=== PATIENT | female | born 1965 | race Caucasian/White ===

== ENCOUNTER → 2018-04-08 | Outpatient (REF) ==
[~2018-04-08] MED LIST: CELEXA; CLONAZEPAM PO; MAXZIDE; NORCO 325 MG-51 TAB PO; TRAZODO50 MG PO
== END ==
LOC: ZLAB.WCH 12:03
DX: Z01.89 Encounter for other specified special examinations (principal)

== ENCOUNTER 2018-06-22 18:13 | Emergency (ER) | payer BC ==
[~2018-06-22] VITALS: Ht 175.3 cm; Wt 102.3 kg
[~2018-06-22 18:13] MED LIST changes: -CLONAZEPAM PO; +KLONOPIN2 MG PO
[2018-06-22 18:20] VITALS: TEMP 97.3
[2018-06-22 18:29] LABS: BASO % 0.2 % (0.0-2.0); EOS # 0.1 (0.0-0.7); EOS % 1.1 % (0-4.0); GRAN # 4.2 (1.4-6.5); GRAN % 45.3 % (42.2-75.2); HEMATOCRIT 39.1 % (37.0-47.0); HEMOGLOBIN 13.4 g/dl (12.5-16.0); LYMPH # 4.3 (1.2-3.4); LYMPH % 46.2 % (20.0-51.0); MEAN CELL VOLUME 89 fl (80.0-100.0); MEAN CORPUSCULAR HEMOGLOBIN 30 pg (27.0-31.0); MEAN CORPUSCULAR HGB CONC 34 g/dl (33.0-37.0); MEAN PLATELET VOLUME 10.6 fl (7.4-10.4); MONO # 0.6 (0.1-0.6); MONO % 6.9 % (1.7-9.3); PLATELET COUNT 226 K/mm3 (130-400); RED BLOOD COUNT 4.41 M/mm3 (4.10-5.30); REDCELL DISTRIBUTION WIDTH-CV 12.4 % (11.5-14.5)
[2018-06-22 18:39] LABS: ALBUMIN 4.2 gm/dL (3.5-5.0); BILIRUBIN,TOTAL 0.4 mg/dL (0.0-1.0); CALCIUM 8.9 mg/dL (8.4-10.2); CREATININE, serum 0.87 mg/dL (0.52-1.25); POTASSIUM 3.6 mmol/L (3.4-5.0); TOTAL PROTEIN 7.7 gm/dL (6.4-8.2)
[2018-06-22] MEDS ORDERED: PROZAC 20MG20 MG PO (18:48)
[2018-06-22] MEDS ORDERED: ADDERALL XR30 MG PO (18:48)
[2018-06-22] MEDS ORDERED: HYZAAR 25 MG-101 TAB PO (18:48)
[2018-06-22] MEDS ORDERED: WELLBUTRIN SR150 M1 PO (18:49)
[2018-06-22 20:55] VITALS: BP 140/95; PULSE 89
== END 2018-06-22 21:39 | disposition home or self-care (01) ==
LOC: COL.ER 18:13
PROVIDERS: Emergency Medicine
DX: S71.112A Laceration without foreign body, left thigh, initial encounter (principal); S51.012A Laceration without foreign body of left elbow, initial encounter; I10 Essential (primary) hypertension; Z23 Encounter for immunization; W54.0XXA Bitten by dog, initial encounter; Y92.009 Unspecified place in unspecified non-institutional (private) residence as the place of occurrence of the external cause
CPT/HCPCS: J0295; J1170; J2405; J7030

== ENCOUNTER → 2018-07-17 | Outpatient (REF) ==
[~2018-07-17] MED LIST changes: +ADDERALL XR30 MG PO; +HYZAAR 25 MG-101 TAB PO; +PROZAC 20MG20 MG PO; +WELLBUTRIN SR150 M1 PO
== END ==
LOC: ZLAB.WCH 16:03
DX: Z01.89 Encounter for other specified special examinations (principal)

== ENCOUNTER → 2018-11-27 | Outpatient (REF) | LOC: ZLAB.WCH 17:10 | DX: Z01.89 Encounter for other specified special examinations (principal) ==

== ENCOUNTER 2019-06-30 15:34 | Emergency (ER) | payer BC | END 2019-06-30 15:47 | disposition left against medical advice (07) | LOC: COL.ER 15:34 | DX: Z72.9 Problem related to lifestyle, unspecified (principal) ==